=== PATIENT | female | born 1990 | race Two or more races ===

== ENCOUNTER 2024-03-02 18:31 | Emergency (ER) | payer OTHER ==
[2024-03-02 18:42] VITALS: TEMP 97.7
--- NOTE | 2024-03-02 19:21 | ED ---
Female Urogenital HPI - General Chief complaint: Vaginal Bleeding Stated complaint: Preg, Vag bleeding Time Seen by Provider: 03/02/24 18:51 Source: patient, RN notes reviewed Mode of arrival: ambulatory Limitations: no limitations - History of Present Illness Initial comments: 33-year-old female presenting to the ER with chief complaint of vaginal bleeding x 1 week at approximately 4 weeks gestation. Patient states she has been going through about 1 pad per day. Denies any abdominal pain, urinary symptoms, lightheadedness, syncope. Patient took 3 tests at home today and all were positive. Last menstrual period was January 14. Patient moved to [place] in July and does not have an OB to follow-up with yet. Patient does not speak Frisian, there is a project buyer at bedside. - Related Data Allergies Allergy/AdvReac Type Severity Reaction Status Date / Time No Known Allergies Allergy Verified 03/02/24 20:19 Review of Systems ROS Statement: Those systems with pertinent positive or pertinent negative responses have been documented in the HPI. ROS Other: All systems not noted in ROS Statement are negative. Past Medical History Past Medical History: No Reported History History of Any Multi-Drug Resistant Organisms: None Reported Past Surgical History: No Surgical Hx Reported Past Psychological History: No Psychological Hx Reported Smoking Status: Former smoker Past Alcohol Use History: Occasional Past Drug Use History: None Reported General Exam Limitations: no limitations General appearance: alert, in no apparent distress Head exam: Present: atraumatic, normocephalic, normal inspection Respiratory exam: Present: normal lung sounds bilaterally. Absent: respiratory distress, wheezes, rales, rhonchi, stridor Cardiovascular Exam: Present: regular rate, normal rhythm, normal heart sounds. Absent: systolic murmur, diastolic murmur, rubs, gallop, clicks GI/Abdominal exam: Present: soft, normal bowel sounds. Absent: distended, tenderness, guarding, rebound, rigid Back exam: Absent: CVA tenderness (R), CVA tenderness (L) Neurological exam: Present: alert, oriented X3 Psychiatric exam: Present: normal affect, normal mood Skin exam: Present: warm, dry, intact, normal color. Absent: rash Course Vital Signs 03/02/24 03/02/24 18:35 23:07 Temperature 97.7 F Pulse Rate 101 H 70 Respiratory 20 16 Rate Blood Pressure 142/89 122/79 O2 Sat by Pulse 99 98 Oximetry Medical Decision Making - Medical Decision Making Was pt. sent in by a medical professional or institution (GUCCI Peña, CAREER DEVELOPER, urgent care, hospital, or penitentiary...) When possible be specific @ -No Did you speak to anyone other than the patient for history (EMS, parent, family, police, friend...)? What history was obtained from this source @ -project buyer virtually present during history Did you review nursing and triage notes (agree or disagree)? Why? @ -I reviewed and agree with nursing and triage notes Were old charts reviewed (outside hosp., previous admission, EMS record, old EKG, old radiological studies, urgent care reports/EKG's, penitentiary records)? Report findings @ -No old charts were reviewed Differential Diagnosis (chest pain, altered mental status, abdominal pain women, abdominal pain men, vaginal bleeding, weakness, fever, dyspnea, syncope, headache, dizziness, GI bleed, back pain, seizure, CVA, palpatations, mental health, musculoskeletal)? @ -Differential Vaginal Bleeding: Spontaneous , threatened , molar , ectopic , bloody show, incompetent cervix, abruptioplacenta, placenta previa, uterine rupture, dysfunctional uterine bleeding, hemorrhage, uterine fibroids, this is not meant to be an all-inclusive list. EKG interpreted by me (3pts min.). @ -None X-rays interpreted by me (1pt min.). @ -None done CT interpreted by me (1pt min.). @ -None done U/S interpreted by me (1pt. min.). @ -Ultrasound pelvis reveals no evidence of intrauterine gestational sac, nonspecific echogenic focus seen within left adnexa What testing was considered but not performed or refused? (CT, X-rays, U/S, labs)? Why? @ -None What meds were considered but not given or refused? Why? @ -None Did you discuss the management of the patient with other professionals (professionals i.e. GUCCI Peña, CAREER DEVELOPER, lab, RT, psych nurse, public health social worker, table cover folder, teacher, field crop technical officer, case management assistant)? Give summary @ -I spoke with radiologist Dr. Samuels regarding ultrasound results, discussed concern for echogenic focus seen in left adnexa. I spoke with Dr. Bahena who is on-call OB to discuss case who recommends discharge with close outpatient follow-up as patient is not having any abdominal pain or tenderness. Was smoking cessation discussed for >3mins.? @ -No Was critical care preformed (if so, how long)? @ -No Were there social determinants of health that impacted care today? How? (Homelessness, low income, unemployed, alcoholism, drug addiction, transportation, low edu. Level, literacy, decrease access to med. care, fpc, rehab)? @ -No Was there de-escalation of care discussed even if they declined (Discuss DNR or withdrawal of care, Hospice)? DNR status @ -No What co-morbidities impacted this encounter? (DM, HTN, Smoking, COPD, CAD, Cancer, CVA, ARF, Chemo, Hep., AIDS, mental health diagnosis, sleep apnea, morbid obesity)? @ -None Was patient admitted / discharged? Hospital course, mention meds given and route, prescriptions, significant lab abnormalities, going to OR and other pertinent info. @ -Patient was discharged. This is a 33-year-old G2, P1 female at approximately 4 weeks gestation presenting for vaginal bleeding x 1 week. Denies abdominal pain or cramping. Vital signs within normal limits. Abdomen is soft and nontender to palpation. Lab work including CBC, CMP, lactic acid unremarkable. Beta-hCG level is 763. Urine is remarkable for large amount of blood. Ultraso und reveals no evidence of intrauterine gestational sac, there is a nonspecific echogenic focus seen within left adnexa. I spoke with radiologist Dr. Olivares regarding ultrasound results as there is concern for echogenic focus in the left adnexa. I then spoke with on-call OB Dr. Bahena who recommends discharge with close outpatient follow-up as patient is not having abdominal pain and is nontender to palpation. Results discussed with patient. Advised importance of follow-up beta-hCG levels in 2 days and instructed to call [facility] OB to schedule repeat ultrasound. Patient is agreeable to plan. Return precautions discussed in detail and patient conveys understanding and agrees to plan. Case was discussed with my ED attending Dr. Aden. Patient discharged in stable condition. Undiagnosed new problem with uncertain prognosis? @ -No Drug Therapy requiring intensive monitoring for toxicity (Heparin, Nitro, Insulin, Cardizem)? @ -No Were any procedures done? @ -No Diagnosis/symptom? @ -Threatened miscarriage Acute, or Chronic, or Acute on Chronic? @ -Acute Uncomplicated (without systemic symptoms) or Complicated (systemic symptoms)? @ -Uncomplicated Side effects of treatment? @ -No Exacerbation, Progression, or Severe Exacerbation? @ -No Poses a threat to life or bodily function? How? (Chest pain, USA, [place], pneumonia, PE, COPD, DKA, ARF, appy, cholecystitis, CVA, Diverticulitis, Homicidal, Suicidal, threat to staff... and all critical care pts) @ -Unlikely at this time - Lab Data Result diagrams: 03/02/24 19:35 03/02/24 19:35 Lab Results 03/02/24 03/02/24 03/02/24 Range/Units 19:35 19:35 19:35 WBC 5.0 (3.8-10.6) k/uL RBC 4.73 (3.80-5.40) m/uL Hgb 14.6 (11.4-16.0) gm/dL Hct 45.0 (34.0-46.0) % MCV 95.2 (80.0-100.0) fL MCH 30.8 (25.0-35.0) pg MCHC 32.4 (31.0-37.0) g/dL RDW 12.1 (11.5-15.5) % Plt Count 282 (150-450) k/uL MPV 7.5 Neutrophils % 62 % Lymphocytes % 26 % Monocytes % 5 % Eosinophils % 3 % Basophils % 1 % Neutrophils # 3.1 (1.3-7.7) k/uL Lymphocytes # 1.3 (1.0-4.8) k/uL Monocytes # 0.3 (0-1.0) k/uL Eosinophils # 0.1 (0-0.7) k/uL Basophils # 0.1 (0-0.2) k/uL Sodium 136 L (137-145) mmol/L Potassium 4.2 (3.5-5.1) mmol/L Chloride 102 (98-107) mmol/L Carbon Dioxide 27 (22-30) mmol/L Anion Gap 7 mmol/L BUN 4 L (7-17) mg/dL Creatinine 0.62 (0.52-1.04) mg/dL Est GFR (CKD-EPI)AfAm >90 (>60 ml/min/1.73 sqM) Est GFR (CKD-EPI)NonAf >90 (>60 ml/min/1.73 sqM) Glucose 93 (74-99) mg/dL Plasma Lactic Acid Curtis (0.7-2.0) mmol/L Calcium 9.8 (8.4-10.2) mg/dL Total Bilirubin 0.6 (0.2-1.3) mg/dL AST 36 (14-36) U/L ALT 31 (4-34) U/L Alkaline Phosphatase 64 (38-126) U/L Total Protein 7.8 (6.3-8.2) g/dL Albumin 4.8 (3.5-5.0) g/dL HCG, Quant 763.4 mIU/mL Urine Color Urine Appearance (Clear) Urine pH (5.0-8.0) Ur Specific [place] (1.001-1.035) Urine Protein (Negative) Urine Glucose (UA) (Negative) Urine Ketones (Negative) Urine Blood (Negative) Urine Nitrite (Negative) Urine Bilirubin (Negative) Urine Urobilinogen (<2.0) mg/dL Ur Leukocyte Esterase (Negative) Urine RBC (0-5) /hpf Urine WBC (0-5) /hpf Ur Squamous Epith Cells (0-4) /hpf Urine Bacteria (None) /hpf Urine Mucus (None) /hpf Blood Type B Positive Blood Type Confirm Blood Type Recheck No Previous Record Bld Type Recheck Status CABO Indicated 03/02/24 03/02/24 03/02/24 Range/Units 19:35 19:56 20:04 WBC (3.8-10.6) k/uL RBC (3.80-5.40) m/uL Hgb (11.4-16.0) gm/dL Hct (34.0-46.0) % MCV (80.0-100.0) fL MCH (25.0-35.0) pg MCHC (31.0-37.0) g/dL RDW (11.5-15.5) % Plt Count (150-450) k/uL MPV Neutrophils % % Lymphocytes % % Monocytes % % Eosinophils % % Basophils % % Neutrophils # (1.3-7.7) k/uL Lymphocytes # (1.0-4.8) k/uL Monocytes # (0-1.0) k/uL Eosinophils # (0-0.7) k/uL Basophils # (0-0.2) k/uL Sodium (137-145) mmol/L Potassium (3.5-5.1) mmol/L Chloride (98-107) mmol/L Carbon Dioxide (22-30) mmol/L Anion Gap mmol/L BUN (7-17) mg/dL Creatinine (0.52-1.04) mg/dL Est GFR (CKD-EPI)AfAm (>60 ml/min/1.73 sqM) Est GFR (CKD-EPI)NonAf (>60 ml/min/1.73 sqM) Glucose (74-99) mg/dL Plasma Lactic Acid Curtis 0.9 (0.7-2.0) mmol/L Calcium (8.4-10.2) mg/dL Total Bilirubin (0.2-1.3) mg/dL AST (14-36) U/L ALT (4-34) U/L Alkaline Phosphatase (38-126) U/L Total Protein (6.3-8.2) g/dL Albumin (3.5-5.0) g/dL HCG, Quant mIU/mL Urine Color Yellow Urine Appearance Clear (Clear) Urine pH 5.5 (5.0-8.0) Ur Specific [place] 1.026 (1.001-1.035) Urine Protein Trace H (Negative) Urine Glucose (UA) Negative (Negative) Urine Ketones 1+ H (Negative) Urine Blood Large H (Negative) Urine Nitrite Negative (Negative) Urine Bilirubin Negative (Negative) Urine Urobilinogen <2.0 (<2.0) mg/dL Ur Leukocyte Esterase Negative (Negative) Urine RBC 173 H (0-5) /hpf Urine WBC 2 (0-5) /hpf Ur Squamous Epith Cells 4 (0-4) /hpf Urine Bacteria Rare H (None) /hpf Urine Mucus Few H (None) /hpf Blood Type Blood Type Confirm B Positive Blood Type Recheck Bld Type Recheck Status Disposition Clinical Impression: Threatened miscarriage Disposition: HOME SELF-CARE Condition: Stable Instructions (If sedation given, give patient instructions): Threatened Miscarriage (ED) Additional Instructions: Please follow-up in 48 hours as discussed for repeat beta-hCG. Please call [facility] TANK CAR REPAIRER and make an appointment for repeat ultrasound. Please return to the Emergency Department if symptoms worsen or any other concerns. Is patient prescribed a controlled substance at d/c from ED?: No Referrals: None,Stated [Primary Care Provider] - 1-2 days Marisol Bahena MD [STAFF PHYSICIAN] - 1-2 days Time of Disposition: 23:18
[2024-03-02 19:48] LABS: Basophils # (A) 0.1 k/uL (0-0.2); Basophils % (A) 1 %; Eosinophils # (A) 0.1 k/uL (0-0.7); Eosinophils % (A) 3 %; HGB 14.6 gm/dL (11.4-16.0); Lymphocytes # (A) 1.3 k/uL (1.0-4.8); Lymphocytes % (A) 26 %; MCH 30.8 pg (25.0-35.0); MCHC 32.4 g/dL (31.0-37.0); MCV 95.2 fL (80.0-100.0); Mean Platelet Volume 7.5; Monocytes # (A) 0.3 k/uL (0-1.0); Monocytes % (A) 5 %; Neutrophils # (A) 3.1 k/uL (1.3-7.7); Neutrophils % (A) 62 %; Platelet Count 282 k/uL (150-450); RBC 4.73 m/uL (3.80-5.40); RDW 12.1 % (11.5-15.5)
[2024-03-02 20:04] LABS: ALT 31 U/L (4-34); AST 36 U/L (14-36); African American GFR (CKD) >90 (>60 ml/min/1.73 sqM); Albumin 4.8 g/dL (3.5-5.0); Alkaline Phosphatase 64 U/L (38-126); Anion Gap 7 mmol/L; Blood Urea Nitrogen 4 mg/dL (7-17); Calcium 9.8 mg/dL (8.4-10.2); Carbon Dioxide 27 mmol/L (22-30); Chloride 102 mmol/L (98-107); Glucose 93 mg/dL (74-99); Non-African American GFR(CKD) >90 (>60 ml/min/1.73 sqM); Potassium 4.2 mmol/L (3.5-5.1); Sodium 136 mmol/L (137-145); Total Bilirubin 0.6 mg/dL (0.2-1.3); Total Protein 7.8 g/dL (6.3-8.2)
[2024-03-02 20:20] LABS: HCG,Quantitative Serum 763.4 mIU/mL
[2024-03-02 20:38] LABS: Appearance,Urine Clear (Clear); Bacteria,Urine Rare /hpf; Bilirubin,Urine Negative (Negative); Blood,Urine Large (Negative); Color,Urine Yellow; Glucose,Urine (UA) Negative (Negative); Ketones,Urine 1+ (Negative); Leukocyte Esterase,Urine Negative (Negative); Mucus,Urine Few /hpf; Nitrite,Urine Negative (Negative); PH, Urine 5.5 (5.0-8.0); Protein,Urine Trace (Negative); RBC,Urine 173 /hpf (0-5); Specific Gravity,Urine 1.026 (1.001-1.035); Squamous Epithelial Cell,Urine 4 /hpf (0-4); Urobilinogen,Urine <2.0 mg/dL (<2.0); WBC,Urine 2 /hpf (0-5)
--- NOTE | 2024-03-02 22:31 | US ---
EXAMINATION TYPE: Transabdominal DATE OF EXAM: 03/02/2024 8:56 PM COMPARISON: NONE CLINICAL INDICATION: Female, 33 years old with history of vaginal bleeding in ; Patient stat es she took multiple positive tests EXAM PERFORMED: Transvaginal (TV) and Transabdominal (TA) EXAM MEASUREMENTS: GESTATIONAL AGE / DATING Physician Established: Not yet established Dates by LMP: (6 weeks/5 days) EDC: 10/21/2024 Dates by First Scan: No previous this is first scan Dates by Current Scan for: Unable to date by today's study MATERNAL ANATOMY Exam is limited due to overlying bowel gas. Uterus: 7.3 x 4.4 x 5.0cm Right Ovary: Obscured by bowel Left Ovary: 3.5 x 1.7 x 2.3cm Post CDS / Adnexa: There is a 2.1 x 1.1 x 1.3cm possible echogenic area seen anterior to the left ova ry without peristalsis. Presence of free fluid: Not seen Presence of corpus luteal cyst: not seen Presence of subchorionic bleed: not seen GESTATION / SURVEY CRL: NA MSD: NA Yolk Sac (normal less than 6mm): NA Heart Rate: NA bpm Rhythm: NA IUP: No IUP seen at this time Date of LMP: 01/15/2024 Beta HcG (if available): 763.4 IMPRESSION: 1. No evidence of intrauterine gestational sac in this patient with a positive B-hCG. This can be see n in early , ectopic and spontaneous . Follow up pelvic ultrasound in 5-7 days and serial beta hCG studies are recommended. 2. There is a nonspecific echogenic focus seen within the left adnexa which does not demonstrate disc rete color Doppler flow. Cannot rule out ectopic on this limited exam. Attention to this st ructure on follow-up ultrasound. Recommend obstetric consultation. Findings of the case were discussed with managing provider GUCCI Baltazar over the phone at 10:24 PM on 03/02/[address] Samuels. [facility], , 03/02/2024 10:29 PM
[2024-03-02 23:09] VITALS: BP 122/79; PULSE 70; RESP 16
== END 2024-03-02 23:26 | disposition home or self-care (01) ==
LOC: EC 18:31
CPT/HCPCS: 36415; 76801; 76817; 80053; 81001; 83605; 84702; 85025; 86900; 86901; 99284

== ENCOUNTER 2024-03-08 09:29 | Emergency (ER) | payer OTHER ==
[2024-03-08 09:35] VITALS: RESP 18
--- NOTE | 2024-03-08 10:40 | ED ---
Recheck HPI - General Chief Complaint: Recheck/Abnormal Lab/Rx Stated Complaint: abn labs Time Seen by Provider: 03/08/24 10:39 Source: patient, RN notes reviewed, old records reviewed Mode of arrival: ambulatory Limitations: language barrier (Patient is from [facility] and speaks broken engligh using google translate to communicate) - History of Present Illness Initial Comments: 33-year-old female presented to the ER for evaluation of vaginal bleeding. Patient was seen here on 03-02-2024 for evaluation of vaginal bleeding. Ultrasound at that time showed no IUP and an abnormality to left adnexa. Patient presents today for reevaluation. Patient reports pain has since subsided. She denies any current vaginal bleeding or discharge. She denies any nausea, vomiting, fevers or chills. Denies any urinary complaints. - Related Data Previous Rx's Medication Instructions Recorded Osf-Oszy-Dpzxd Acid 1 each PO DAILY 30 Days #30 cap 03/08/24 [-U Capsule] Allergies Allergy/AdvReac Type Severity Reaction Status Date / Time No Known Allergies Allergy Verified 03/08/24 12:08 Review of Systems ROS Statement: Those systems with pertinent positive or pertinent negative responses have been documented in the HPI. ROS Other: All systems not noted in ROS Statement are negative. Past Medical History Past Medical History: No Reported History History of Any Multi-Drug Resistant Organisms: None Reported Past Surgical History: No Surgical Hx Reported Past Psychological History: No Psychological Hx Reported Smoking Status: Former smoker Past Alcohol Use History: Occasional Past Drug Use History: None Reported General Exam Limitations: no limitations Course Vital Signs 03/08/24 03/08/24 09:34 13:12 Temperature 97.8 F 97.6 F Pulse Rate 88 82 Respiratory 18 18 Rate Blood Pressure 123/86 120/84 O2 Sat by Pulse 99 99 Oximetry - Reevaluation(s) Reevaluation #1: 03/08/24 12:27 Case discussed with on-call ENGLISH LANGUAGE LEARNER TUTOR, Dr. Mack. He advised on close outpatient ENGLISH LANGUAGE LEARNER TUTOR follow-up outpatient. Patient does not require any intervention at this time. Medical Decision Making - Medical Decision Making Was pt. sent in by a medical professional or institution (, PA, WOOL FLEECE SORTER, urgent care, hospital, or care home...) When possible be specific @ -No Did you speak to anyone other than the patient for history (EMS, parent, family, police, friend...)? What history was obtained from this source @ -No Did you review nursing and triage notes (agree or disagree)? Why? @ -I reviewed and agree with nursing and triage notes Were old charts reviewed (outside hosp., previous admission, EMS record, old EKG, old radiological studies, urgent care reports/EKG's, care home records)? Report findings @ -Yes, I reviewed ER visit from 03-02-2024 patient seen for vaginal bleeding. No IUP at that time on ultrasound. Serum hCG 763. Patient discharged with close follow-up with ENGLISH LANGUAGE LEARNER TUTOR. blood type B+ Differential Diagnosis (chest pain, altered mental status, abdominal pain women, abdominal pain men, vaginal bleeding, weakness, fever, dyspnea, syncope, headache, dizziness, GI bleed, back pain, seizure, CVA, palpatations, mental health, musculoskeletal)? @ -Differential Abdominal Pain Women: Appendicitis, Cholecystitis, diverticulosis, ischemic bowel, pancreatitis, hepatitis, UTI, gastroenteritis, AAA, incarcerated hernia, bowel obstruction, constipation, inflammatory bowel, hepatitis, peptic ulcer disease, splenic infarction, perforated viscus, vulvitis, ovarian torsion, PID, kidney stone, placenta abruption, this is not meant to be an all-inclusive list EKG interpreted by me (3pts min.). @ -None done X-rays interpreted by me (1pt min.). @ -None done CT interpreted by me (1pt min.). @ -None done U/S interpreted by me (1pt. min.). @ - ultrasound showing no evidence of IUP. There is multiple areas adjacent to left adnexa consistent with follicles. 1 hypoechoic area of the left ovary measuring 1.9 x 1.6 x 1.1 cm. Most consistent with a related corpus luteum. 2 echogenic areas adjacent to the left adnexa. What testing was considered but not performed or refused? (CT, X-rays, U/S, labs)? Why? @ -None What meds were considered but not given or refused? Why? @ -None Did you discuss the management of the patient with other professionals (professionals i.e. , PA, WOOL FLEECE SORTER, lab, RT, psych nurse, social service liaison, field administrative assistant, teacher, chief contract officer, rn case manager)? Give summary @ -Yes, case discussed with on-call ENGLISH LANGUAGE LEARNER TUTOR, Dr. Mack who advised on serial hCGs, ultrasounds and outpatient follow-up. Was smoking cessation discussed for >3mins.? @ -No Was critical care preformed (if so, how long)? @ -No Were there social determinants of health that impacted care today? How? (Homelessness, low income, unemployed, alcoholism, drug addiction, transportation, low edu. Level, literacy, decrease access to med. care, fpc, rehab)? @ -Yes, patient moved to [place] from [facility] in July of this year. She has decreased access to medical care. Was there de-escalation of care discussed even if they declined (Discuss DNR or withdrawal of care, Hospice)? DNR status @ -No What co-morbidities impacted this encounter? (DM, HTN, Smoking, COPD, CAD, Cancer, CVA, ARF, Chemo, Hep., AIDS, mental health diagnosis, sleep apnea, morbid obesity)? @ - Was patient admitted / discharged? Hospital course, mention meds given and route, prescriptions, significant lab abnormalities, going to OR and other pertinent info. @ -Discharge. 33-year-old female presenting to the ER for follow-up evaluation of abdominal pain in . Patient speaks broken [place] and [email or web address] translate and Ary GRACE translated. Patient seen here on 03-02-2024 for similar complaint. No IUP seen at that time. Serum hCG 763. Upon my evaluation today, patient no signs of acute distress and nontoxic-appearing. No focal abdominal tenderness. Vitals stable. Laboratory studies repeated showing a serum hCG today of 1590. No IUP identified today. Multiple areas adjacent to left adnexa consistent with follicles. Urinalysis unremarkable. Patient's blood type is B+ no indication for RhoGAM. Case discussed with on-call ENGLISH LANGUAGE LEARNER TUTOR, Dr. Mack, who advised on serial hCGs, ultrasounds and outpatient follow-up. Upon reevaluation, patient resting comfortably exam room no signs of acute distress. Results discussed with patient, all questions answered. Advise close follow-up with ENGLISH LANGUAGE LEARNER TUTOR, referral given. Ultrasound and serial hCG prescription given I instructed patient to have these completed in 48 to 72 hours. Strict return parameters discussed. Patient discharged in stable condition. Patient verbally expressed understanding and agreement with care plan. Case discussed with ED attending, Dr. Davies. Undiagnosed new problem with uncertain prognosis? @ -No Drug Therapy requiring intensive monitoring for toxicity (Heparin, Nitro, Insulin, Cardizem)? @ -No Were any procedures done? @ -No Diagnosis/symptom? @ -/abdominal pain Acute, or Chronic, or Acute on Chronic? @ -Acute Uncomplicated (without systemic symptoms) or Complicated (systemic symptoms)? @ -Uncomplicated Side effects of treatment? @ -No Exacerbation, Progression, or Severe Exacerbation? @ -No Poses a threat to life or bodily function? How? (Chest pain, [place], [place], pneumonia, PE, COPD, DKA, ARF, appy, cholecystitis, CVA, Diverticulitis, Homicidal, Suicidal, threat to staff... and all critical care pts) @ -No - Lab Data Result diagrams: 03/08/24 11:19 03/08/24 11:19 Lab Results 03/08/24 03/08/24 03/08/24 Range/Units 11:19 11:19 11:19 WBC 4.1 (3.8-10.6) k/uL RBC 4.29 (3.80-5.40) m/uL Hgb 13.3 (11.4-16.0) gm/dL Hct 41.2 (34.0-46.0) % MCV 95.9 (80.0-100.0) fL MCH 30.9 (25.0-35.0) pg MCHC 32.3 (31.0-37.0) g/dL RDW 12.1 (11.5-15.5) % Plt Count 321 (150-450) k/uL MPV 7.9 Neutrophils % 52 % Lymphocytes % 33 % Monocytes % 8 % Eosinophils % 3 % Basophils % 1 % Neutrophils # 2.2 (1.3-7.7) k/uL Lymphocytes # 1.3 (1.0-4.8) k/uL Monocytes # 0.3 (0-1.0) k/uL Eosinophils # 0.1 (0-0.7) k/uL Basophils # 0.0 (0-0.2) k/uL Sodium 139 (137-145) mmol/L Potassium 4.7 (3.5-5.1) mmol/L Chloride 106 (98-107) mmol/L Carbon Dioxide 28 (22-30) mmol/L Anion Gap 5 mmol/L BUN 4 L (7-17) mg/dL Creatinine 0.59 (0.52-1.04) mg/dL Est GFR (CKD-EPI)AfAm >90 (>60 ml/min/1.73 sqM) Est GFR (CKD-EPI)NonAf >90 (>60 ml/min/1.73 sqM) Glucose 102 H (74-99) mg/dL Calcium 9.8 (8.4-10.2) mg/dL Total Bilirubin 0.5 (0.2-1.3) mg/dL AST 29 (14-36) U/L ALT 30 (4-34) U/L Alkaline Phosphatase 45 (38-126) U/L Total Protein 7.2 (6.3-8.2) g/dL Albumin 4.5 (3.5-5.0) g/dL HCG, Quant 1590.3 mIU/mL Urine Color Colorless Urine Appearance Clear (Clear) Urine pH 6.5 (5.0-8.0) Ur Specific [place] 1.001 (1.001-1.035) Urine Protein Negative (Negative) Urine Glucose (UA) Negative (Negative) Urine Ketones Negative (Negative) Urine Blood Negative (Negative) Urine Nitrite Negative (Negative) Urine Bilirubin Negative (Negative) Urine Urobilinogen <2.0 (<2.0) mg/dL Ur Leukocyte Esterase Negative (Negative) - Radiology Data Radiology results: report reviewed, image reviewed Disposition Clinical Impression: , Abdominal pain Disposition: HOME SELF-CARE Condition: Stable Instructions (If sedation given, give patient instructions): (ED) Additional Instructions: Please follow-up with ENGLISH LANGUAGE LEARNER TUTOR. Have serial hCGs and ultrasounds to trend . Return to the ER for any new or worsening concerns. Prescriptions: Lom-Ajno-Cfwzl Acid [-U Capsule] 1 each PO DAILY 30 Days #30 cap Is patient prescribed a controlled substance at d/c from ED?: No Referrals: Pedro Mancilla MD [STAFF PHYSICIAN] - 1-2 days (Contact/go to office to make follow up appointment. ) None,Stated [REFERRING] - 1-2 days [facility] - 1-2 days ([facility] for those with no insurance or underinsured. Contact to become established as a patient. ) Time of Disposition: 13:00
[2024-03-08 11:34] LABS: Basophils % (A) 1 %; Eosinophils # (A) 0.1 k/uL (0-0.7); Eosinophils % (A) 3 %; HCT 41.2 % (34.0-46.0); HGB 13.3 gm/dL (11.4-16.0); Lymphocytes # (A) 1.3 k/uL (1.0-4.8); Lymphocytes % (A) 33 %; MCH 30.9 pg (25.0-35.0); MCHC 32.3 g/dL (31.0-37.0); MCV 95.9 fL (80.0-100.0); Mean Platelet Volume 7.9; Monocytes # (A) 0.3 k/uL (0-1.0); Monocytes % (A) 8 %; Neutrophils # (A) 2.2 k/uL (1.3-7.7); Neutrophils % (A) 52 %; Platelet Count 321 k/uL (150-450); RBC 4.29 m/uL (3.80-5.40); RDW 12.1 % (11.5-15.5); WBC 4.1 k/uL (3.8-10.6)
--- NOTE | 2024-03-08 11:37 | US ---
EXAMINATION TYPE: Transabdominal DATE OF EXAM: 03/08/2024 11:18 AM COMPARISON: 03/02/24 CLINICAL INDICATION: Female, 33 years old with history of abd pain; Pt's prior US had recommended a f ollow up US and hCG. No bleeding or cramping at this time. 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 EXAM PERFORMED: Transvaginal (TV) and Transabdominal (TA) EXAM MEASUREMENTS: GESTATIONAL AGE / DATING Physician Established: Not yet established Dates by LMP: (7 weeks/4 days) EDC: 10/22/23 Dates by First Scan: No IUP seen Dates by Current Scan for: No IUP seen at this time MATERNAL ANATOMY Uterus: 7.6 x 5.4 x 4.0cm Right Ovary: 2.4 x 1.9 x 1.4cm Left Ovary: 3.2 x 2.8 x 1.8cm Post CDS / Adnexa: multiple echogenic areas seen adjacent to left ovary. Presence of free fluid: No Presence of corpus luteal cyst: ? in left ovary Presence of subchorionic bleed: No GESTATION / SURVEY CRL: not seen MSD: not seen Yolk Sac (normal less than 6mm): Not seen IUP: No IUP seen at this time Date of LMP: Around 01/15/24 Beta HcG (if available): Not drawn today. On 03/02/24 it was 763.4 No IUP seen today. Endometrium is measuring 0.4cm. Multiple areas seen in and adjacent to left ovary consistent with follicles. 1 hypoechoic area in the left ovary measuring 1.9 x 1.6 x 1.1cm. Most cons istent with a crenulated corpus luteum. 2 echogenic areas seen adjacent to left ovary of doubtful cli nical significance. IMPRESSION: No evidence of intrauterine gestational sac again from prior ultrasound 03/02/2024. Correlate with bet a-hCG. If positive, this could represent early , ectopic or spontaneous . More worrisome for spontaneous due to lack of gestational sac again. Follow up pelvic ultras ound in 5-7 days and serial beta hCG studies are recommended. [facility], , 03/08/2024 11:35 AM
[2024-03-08 11:55] LABS: ALT 30 U/L (4-34); AST 29 U/L (14-36); African American GFR (CKD) >90 (>60 ml/min/1.73 sqM); Albumin 4.5 g/dL (3.5-5.0); Alkaline Phosphatase 45 U/L (38-126); Anion Gap 5 mmol/L; Blood Urea Nitrogen 4 mg/dL (7-17); Calcium 9.8 mg/dL (8.4-10.2); Carbon Dioxide 28 mmol/L (22-30); Chloride 106 mmol/L (98-107); Glucose 102 mg/dL (74-99); Non-African American GFR(CKD) >90 (>60 ml/min/1.73 sqM); Potassium 4.7 mmol/L (3.5-5.1); Sodium 139 mmol/L (137-145); Total Bilirubin 0.5 mg/dL (0.2-1.3); Total Protein 7.2 g/dL (6.3-8.2)
[2024-03-08 12:04] LABS: Appearance,Urine Clear (Clear); Bilirubin,Urine Negative (Negative); Blood,Urine Negative (Negative); Color,Urine Colorless; Glucose,Urine (UA) Negative (Negative); Ketones,Urine Negative (Negative); Leukocyte Esterase,Urine Negative (Negative); Nitrite,Urine Negative (Negative); PH, Urine 6.5 (5.0-8.0); Protein,Urine Negative (Negative); Specific Gravity,Urine 1.001 (1.001-1.035); Urobilinogen,Urine <2.0 mg/dL (<2.0)
[2024-03-08 12:07] LABS: HCG,Quantitative Serum 1590.3 mIU/mL
[2024-03-08 13:13] VITALS: BP 120/84; PULSE 82; TEMP 97.6
== END 2024-03-08 13:13 | disposition home or self-care (01) ==
LOC: EC 09:29
CPT/HCPCS: 36415; 76801; 76817; 80053; 81003; 84702; 85025

== ENCOUNTER 2024-03-11 09:02 | Emergency (ER) | payer OTHER ==
--- NOTE | 2024-03-11 09:55 | ED ---
Recheck HPI - General Chief Complaint: Recheck/Abnormal Lab/Rx Stated Complaint: Recheck Time Seen by Provider: 03/11/24 09:55 Source: patient, paid intern, RN notes reviewed, old records reviewed Mode of arrival: ambulatory Limitations: language barrier - History of Present Illness Initial Comments: 33-year-old female presented to the ER for abnormal ultrasound follow-up. Last menstrual cycle 01/15/24. Patient recently moved here from [facility] in July. Patient was seen here on 03-02-24 for abdominal pain and vaginal bleeding. hCG at that time is 763. Ultrasound not showing an IUP but there is a nonspecific echogenic focus near the left adnexa cannot rule out ectopic . Patient seen here on 03-08-2024 for follow-up. hCG at that time 1590 ultrasound showing no IUP with multiple nonspecific areas adjacent to the left adnexa. Patient reports today no change in her symptoms. No abdominal pain no vaginal bleeding or discharge. No other acute complaints. She is here for repeat ultrasound and hCG levels. - Related Data Previous Rx's Medication Instructions Recorded Def-Osxn-Donzj Acid 1 each PO DAILY 30 Days #30 cap 03/08/24 [-U Capsule] Allergies Allergy/AdvReac Type Severity Reaction Status Date / Time No Known Allergies Allergy Verified 03/11/24 09:23 Review of Systems ROS Statement: Those systems with pertinent positive or pertinent negative responses have been documented in the HPI. ROS Other: All systems not noted in ROS Statement are negative. Past Medical History Past Medical History: No Reported History History of Any Multi-Drug Resistant Organisms: None Reported Past Surgical History: No Surgical Hx Reported Past Psychological History: No Psychological Hx Reported Smoking Status: Former smoker Past Alcohol Use History: Occasional Past Drug Use History: None Reported General Exam Limitations: language barrier (Google translate) General appearance: alert, in no apparent distress Respiratory exam: Present: normal lung sounds bilaterally. Absent: respiratory distress, wheezes, rales, rhonchi, stridor Cardiovascular Exam: Present: regular rate, normal rhythm, normal heart sounds. Absent: systolic murmur, diastolic murmur, rubs, gallop, clicks GI/Abdominal exam: Present: soft, normal bowel sounds. Absent: distended, tenderness, guarding, rebound, rigid Neurological exam: Present: alert, oriented X3, CN II-XII intact Skin exam: Present: warm, dry, intact, normal color. Absent: rash Course Vital Signs 03/11/24 03/11/24 09:20 11:46 Temperature 97.8 F 98.1 F Pulse Rate 74 90 Respiratory 16 18 Rate Blood Pressure 113/77 118/70 O2 Sat by Pulse 98 Oximetry Medical Decision Making - Medical Decision Making Was pt. sent in by a medical professional or institution (, PA, ASSISTANT ACCOUNT MANAGER, urgent care, hospital, or detention...) When possible be specific @ -No Did you speak to anyone other than the patient for history (EMS, parent, family, police, friend...)? What history was obtained from this source @ -No Did you review nursing and triage notes (agree or disagree)? Why? @ -I reviewed and agree with nursing and triage notes Were old charts reviewed (outside hosp., previous admission, EMS record, old EKG, old radiological studies, urgent care reports/EKG's, detention records)? Report findings @ -I reviewed ER charts from 03-02-2024. hCG at that time 763. Ultrasound showing no IUP with a nonspecific echogenic focus at the left adnexa. 03-08-2024. Serum hCG 1590. No IUP at that time. Multiple nonspecific areas adjacent to the left adnexa. Differential Diagnosis (chest pain, altered mental status, abdominal pain women, abdominal pain men, vaginal bleeding, weakness, fever, dyspnea, syncope, head ache, dizziness, GI bleed, back pain, seizure, CVA, palpatations, mental health, musculoskeletal)? @ -Differential Abdominal Pain Women:Appendicitis, Cholecystitis, diverticulosis, ischemic bowel, pancreatitis, hepatitis, UTI, gastroenteritis, AAA, incarcerated hernia, bowel obstruction, constipation, inflammatory bowel, hepatitis, peptic ulcer disease, splenic infarction, perforated viscus, vul vitis, ovarian torsion, PID, kidney stone, placenta abruption, this is not meant to be an all-inclusive list EKG interpreted by me (3pts min.). @ -None done X-rays interpreted by me (1pt min.). @ -None done CT interpreted by me (1pt min.). @ -None done U/S interpreted by me (1pt. min.). @ - ultrasound showing no IUP. There is a hypoechoic structure in the left adnexa. Increased vascularity to the region of the left adnexa. Ectopic not excluded. No free fluid in the cul-de-sac. What testing was considered but not performed or refused? (CT, X-rays, U/S, labs)? Why? @ -None What meds were considered but not given or refused? Why? @ -None Did you discuss the management of the patient with other professionals (professionals i.e. DrIrish, PA, ASSISTANT ACCOUNT MANAGER, lab, RT, psych nurse, social worker school, quality assurance manager, teacher, morale officer, telephonic case manager)? Give summary @ -No Was smoking cessation discussed for >3mins.? @ -No Was critical care preformed (if so, how long)? @ -No Were there social determinants of health that impacted care today? How? (Homelessness, low income, unemployed, alcoholism, drug addiction, transportation, low edu. Level, literacy, decrease access to med. care, group home, rehab)? @ -Yes, patient recently moved here from [facility] in July and has limited access to healthcare. Was there de-escalation of care discussed even if they declined (Discuss DNR or withdrawal of care, Hospice)? DNR status @ -No What co-morbidities impacted this encounter? (DM, HTN, Smoking, COPD, CAD, Cancer, CVA, ARF, Chemo, Hep., AIDS, mental health diagnosis, sleep apnea, morbid obesity)? @ -None Was patient admitted / discharged? Hospital course, mention meds given and route, prescriptions, significant lab abnormalities, going to OR and other pertinent info. @ -Discharge. 33-year-old female presented to ER for reevaluation of abdominal pain and vaginal bleeding in . Google translate used to communicate with patient as she speaks broken Iraqi. History and physical exam completed. Vitals within normal limits. No acute complaints. Exam benign. HCG today 2613.9. Ultrasound completed today showing no IUP. There is a hypoechoic structure in the left adnexa. Increased vascularity to the region of left adnexa. I recommended 48-hour repeat hCG and ultrasound, scripts given. Patient stable for discharge at this time. Strict return parameters discussed. Patient discharged in stable condition with follow-up to [employer], referral given. Patient verbally expressed understanding and agreement with care plan. Case discussed with ED attending, Dr. Carvalho. Undiagnosed new problem with uncertain prognosis? @ -No Drug Therapy requiring intensive monitoring for toxicity (Heparin, Nitro, Insulin, Cardizem)? @ -No Were any procedures done? @ -No Diagnosis/symptom? @ -Abdominal pain in Acute, or Chronic, or Acute on Chronic? @ -Acute Uncomplicated (without systemic symptoms) or Complicated (systemic symptoms)? @ -Uncomplicated Side effects of treatment? @ -No Exacerbation, Progression, or Severe Exacerbation? @ -No Poses a threat to life or bodily function? How? (Chest pain, [place], [place], pneumonia, PE, COPD, DKA, ARF, appy, cholecystitis, CVA, Diverticulitis, Homicidal, Suicidal, threat to staff... and all critical care pts) @ -No - Lab Data Lab Results 03/11/24 Range/Units 09:47 HCG, Quant 2613.9 mIU/mL - Radiology Data Radiology results: report reviewed, image reviewed Disposition Clinical Impression: Disposition: HOME SELF-CARE Condition: Stable Additional Instructions: Follow-up in 48 hours for repeat hCG and ultrasound. Return to the ER for any new or worsening concerns. Is patient prescribed a controlled substance at d/c from ED?: No Referrals: Nonstaff,Physician [Primary Care Provider] - 1-2 days Marisol Bahena MD [STAFF PHYSICIAN] - 1-2 days Time of Disposition: 11:29
--- NOTE | 2024-03-11 11:03 | US ---
EXAMINATION TYPE: Transabdominal DATE OF EXAM: 03/11/2024 10:41 AM COMPARISON: 03/08/24, 03/02/24 CLINICAL INDICATION: Female, 33 years old with history of ; Patient here for follow up US & H cg. Was here 3 days ago with hcg of 1590 and no IUP seen. Today hcg is 2613 EXAM PERFORMED: Transvaginal (TV) EXAM MEASUREMENTS: GESTATIONAL AGE / DATING Physician Established: Not yet established Dates by LMP: 01/15/24 8 weeks/0 days) EDC: 10/21/24 Dates by First Scan: NO IUP seen prior scans Dates by Current Scan for: No IUP seen at this time MATERNAL ANATOMY Uterus: 6.7 x 3.6 x 4.3 cm Right Ovary: 2.5 x 1.7 x 2.5 cm Left Ovary: 2.9 x 1.4 x 2.6 cm Post CDS / Adnexa: Excessive bowel gas noted on today's exam; left adnexal hypoechoic area adjacent t o left ovary measuring 1.7 x 1.2 x 1.2 cm; Left sided blood vessels appear noticeably larger than rig ht side Presence of free fluid: No Presence of corpus luteal cyst: No Presence of subchorionic bleed: No Date of LMP: 01/15/24 Beta HcG (if available): 2613 today -- was 1590 3 days ago on 03/08/24 IMPRESSION: 1. No intrauterine identified 2. Hypoechoic structure in the left adnexa with rising beta hCG. Increase in vascularity in the regio n of the left adnexa. 3 .Ectopic is not excluded. 4. No free fluid within the cul-de-sac. [facility], , 03/11/2024 11:00 AM
[2024-03-11 11:47] VITALS: BP 118/70; PULSE 90; RESP 18; TEMP 98.1
== END 2024-03-11 11:50 | disposition home or self-care (01) ==
LOC: EC 09:03
CPT/HCPCS: 36415; 76801; 76817; 84702; 99284

== ENCOUNTER 2024-03-13 18:32 | Emergency (ER) | payer OTHER ==
[2024-03-13 19:15] VITALS: RESP 16; TEMP 97.9
[2024-03-13] MEDS: SODIUM CHLORIDE 0.9% 500 ML 500 ML IV ONE (19:59)
[2024-03-13 20:06] LABS: Basophils % (A) 1 %; Eosinophils # (A) 0.2 k/uL (0-0.7); Eosinophils % (A) 2 %; HCT 41.6 % (34.0-46.0); HGB 13.7 gm/dL (11.4-16.0); Lymphocytes # (A) 1.8 k/uL (1.0-4.8); Lymphocytes % (A) 28 %; MCHC 32.9 g/dL (31.0-37.0); MCV 94.4 fL (80.0-100.0); Mean Platelet Volume 7.6; Monocytes # (A) 0.4 k/uL (0-1.0); Monocytes % (A) 5 %; Neutrophils # (A) 3.9 k/uL (1.3-7.7); Neutrophils % (A) 60 %; Platelet Count 340 k/uL (150-450); RBC 4.41 m/uL (3.80-5.40); RDW 11.9 % (11.5-15.5); WBC 6.5 k/uL (3.8-10.6)
[2024-03-13 20:07] LABS: Appearance,Urine Clear (Clear); Bilirubin,Urine Negative (Negative); Blood,Urine Negative (Negative); Color,Urine Colorless; Glucose,Urine (UA) Negative (Negative); Ketones,Urine Negative (Negative); Leukocyte Esterase,Urine Negative (Negative); Nitrite,Urine Negative (Negative); PH, Urine 6.5 (5.0-8.0); Protein,Urine Negative (Negative); Specific Gravity,Urine 1.002 (1.001-1.035); Urobilinogen,Urine <2.0 mg/dL (<2.0)
[2024-03-13 20:17] LABS: Glucose 98 mg/dL (74-99); Sodium 140 mmol/L (137-145)
[2024-03-13 20:18] LABS: ALT 33 U/L (4-34); AST 30 U/L (14-36); African American GFR (CKD) >90 (>60 ml/min/1.73 sqM); Albumin 4.8 g/dL (3.5-5.0); Alkaline Phosphatase 50 U/L (38-126); Anion Gap 7 mmol/L; Blood Urea Nitrogen 8 mg/dL (7-17); Calcium 10.2 mg/dL (8.4-10.2); Carbon Dioxide 27 mmol/L (22-30); Chloride 106 mmol/L (98-107); Non-African American GFR(CKD) >90 (>60 ml/min/1.73 sqM); Potassium 4.5 mmol/L (3.5-5.1); Total Bilirubin 0.5 mg/dL (0.2-1.3); Total Protein 7.5 g/dL (6.3-8.2)
--- NOTE | 2024-03-13 20:59 | US ---
EXAMINATION TYPE: Transabdominal DATE OF EXAM: 03/13/2024 8:46 PM COMPARISON: 03/11/2024 CLINICAL INDICATION: Female, 33 years old with history of pain; Patient states no pain. States positi ve preg test and discharge. Technique: Transvaginal (TV) and Transabdominal (TA), Grayscale and color Doppler imaging of the pelv is. EXAM MEASUREMENTS: GESTATIONAL AGE / DATING Physician Established: Not yet established Dates by LMP: (8 weeks/2 days) EDC: 10/21/2024 Dates by First Scan: cannot date by previous exams Dates by Current Scan for: No IUP seen at this time MATERNAL ANATOMY Uterus: 7.5 x 4.1 x 4.4cm. No IUP seen. Endometrium measures 0.5cm Right Ovary: 2.6 x 1.8 x 1.8cm. Follicular changes seen. WNL Left Ovary: 3.4 x 1.6 x 2.1cm. Follicular changes noted. 1.2 x 1.2 x 1.2cm hypoechoic area seen, prob able corpus luteal cyst vs other Post CDS / Adnexa: wnl as best seen Presence of free fluid: no Presence of corpus luteal cyst: 1.2 x 1.2 x 1.2cm hypoechoic area seen within left ovary Presence of subchorionic bleed: no Date of LMP: 01/15/2024 Beta HcG (if available): 3284 IMPRESSION: No evidence of intrauterine gestational sac in this patient with a positive B-hCG. This can be seen i n early , ectopic and spontaneous . Follow up pelvic ultrasound in 5-7 day s and serial beta hCG studies are recommended. [facility], Workstation: [id number], 03/13/2024 8:57 PM
--- NOTE | 2024-03-13 22:34 | ED ---
Female Urogenital HPI - General Chief complaint: Urogenital Stated complaint: preg,vag discharge Time Seen by Provider: 03/13/24 19:18 Source: patient Mode of arrival: ambulatory Limitations: language barrier - History of Present Illness Initial comments: 33-year-old female presenting for repeat ultrasound and hCG. Patient is currently about 8 weeks with her LMP of 8/3. She was here 2 days ago and ultrasound could not identify an IUP. She has come back as instructed for repeat testing. She is having no pain or bleeding today. She was previously having some discharge ranging in color from pink to brown. No pain today. No fevers. No dysuria or hematuria. No flank pain. G2, P1. Recently moved here from [facility], requires the use of a tattoo designer - Related Data Previous Rx's Medication Instructions Recorded Ggs-Itvj-Laqby Acid 1 each PO DAILY 30 Days #30 cap 03/08/24 [-U Capsule] Vit No.179/Iron/Folic 1 each PO DAILY #30 tab 03/13/24 [ Tablet] Allergies Allergy/AdvReac Type Severity Reaction Status Date / Time No Known Allergies Allergy Verified 03/11/24 09:23 Review of Systems ROS Statement: Those systems with pertinent positive or pertinent negative responses have been documented in the HPI. ROS Other: All systems not noted in ROS Statement are negative. Past Medical History Past Medical History: No Reported History History of Any Multi-Drug Resistant Organisms: None Reported Past Surgical History: No Surgical Hx Reported Past Psychological History: No Psychological Hx Reported Smoking Status: Former smoker Past Alcohol Use History: Occasional Past Drug Use History: None Reported General Exam Limitations: language barrier (Tajik, requires tattoo designer) General appearance: alert, in no apparent distress Head exam: Present: atraumatic, normocephalic, normal inspection Eye exam: Present: normal appearance, EOMI Neck exam: Present: normal inspection. Absent: meningismus Respiratory exam: Absent: respiratory distress Cardiovascular Exam: Present: regular rate GI/Abdominal exam: Present: soft. Absent: distended, tenderness, guarding, rebound, rigid Neurological exam: Present: alert, oriented X3 Psychiatric exam: Present: normal affect, normal mood Skin exam: Present: warm, dry Course Vital Signs 03/13/24 03/13/24 19:11 22:43 Temperature 97.9 F Pulse Rate 88 85 Respiratory 16 16 Rate Blood Pressure 115/76 108/73 O2 Sat by Pulse 100 97 Oximetry Medical Decision Making - Medical Decision Making Was pt. sent in by a medical professional or institution (GUCCI Peña, PICKER/PULLER, urgent care, hospital, or custodial...) When possible be specific @ -No Did you speak to anyone other than the patient for history (EMS, parent, family, police, friend...)? What history was obtained from this source @ -No Did you review nursing and triage notes (agree or disagree)? Why? @ -I reviewed and agree with nursing and triage notes Were old charts reviewed (outside hosp., previous admission, EMS record, old EKG, old radiological studies, urgent care reports/EKG's, custodial records)? Report findings @ -Reviewed the patient's recent visits Differential Diagnosis (chest pain, altered mental status, abdominal pain women, abdominal pain men, vaginal bleeding, weakness, fever, dyspnea, syncope, he adache, dizziness, GI bleed, back pain, seizure, CVA, palpatations, mental health, musculoskeletal)? @ -MDM Differential Vaginal Bleeding: Spontaneous , threatened , molar , ectopic , bloody show, incompetent cervix, abruptioplacenta, placenta previa, uterine rupt ure, dysfunctional uterine bleeding, hemorrhage, uterine fibroids. ... This is not meant to be an all-inclusive list EKG interpreted by me (3pts min.). @ -As above X-rays interpreted by me (1pt min.). @ -None done CT interpreted by me (1pt min.). @ -None done U/S interpreted by me (1pt. min.). @ -Ultrasound shows no evidence of intrauterine gestational sac in this patient with a positive beta hCG. This can be seen in early ectopic or spontaneous . Follow-up pelvic ultrasound in 5 to 7 days and serial beta hCG studies are recommended What testing was considered but not performed or refused? (CT, X-rays, U/S, labs)? Why? @ -None What meds were considered but not given or refused? Why? @ -None Did you discuss the management of the patient with other professionals (professionals i.e. GUCCI Peña, PICKER/PULLER, lab, RT, psych nurse, social services aide, crematorium operator, teacher, property and supply officer, case specialist)? Give summary @ -No Was smoking cessation discussed for >3mins.? @ -No Was critical care preformed (if so, how long)? @ -No Were there social determinants of health that impacted care today? How? (Homelessness, low income, unemployed, alcoholism, drug addiction, transportation, low edu. Level, literacy, decrease access to med. care, senior living, rehab)? @ -Patient speaks Tajik, tattoo designer required Was there de-escalation of care discussed even if they declined (Discuss DNR or withdrawal of care, Hospice)? DNR status @ -No What co-morbidities impacted this encounter? (DM, HTN, Smoking, COPD, CAD, Cancer, CVA, ARF, Chemo, Hep., AIDS, mental health diagnosis, sleep apnea, morbid obesity)? @ -None Was patient admitted / discharged? Hospital course, mention meds given and route, prescriptions, significant lab abnormalities, going to OR and other pertinent info. @ -33-year-old female presenting for repeat beta-hCG and ultrasound after not having an identifiable IUP on ultrasound 48 hours ago. Patient is having no pain or vaginal bleeding at this time. Ultrasound today still does not identify definitive IUP which could mean multiple things including miscarriage, early , or ectopic . hCG 3284.3, while this has increased to has not doubled from most recent value of 2613.9. Patient is provided with a prescription for repeat beta-hCG and ultrasound as well as referral to [facility] BI TRI OPERATOR. She is educated on today's findings and the required further testing. All questions were answered. Discharged. Follow-up with PCP. Report back to ER with any new or worsening symptoms. Discussed return parameters and answered all questions. Patient conveyed verbal understanding and agreed to the plan. I discussed this case in detail with my attending Dr. Alvarado Undiagnosed new problem with uncertain prognosis? @ -No Drug Therapy requiring intensive monitoring for toxicity (Heparin, Nitro, Insulin, Cardizem)? @ -No Were any procedures done? @ -No Diagnosis/symptom? @ -Threatened miscarriage Acute, or Chronic, or Acute on Chronic? @ -Acute Uncomplicated (without systemic symptoms) or Complicated (systemic symptoms)? @ -Uncomplicated Side effects of treatment? @ -No Exacerbation, Progression, or Severe Exacerbation? @ -No - Lab Data Result diagrams: 03/13/24 19:50 03/13/24 19:50 Lab Results 03/13/24 03/13/24 03/13/24 Range/Units 19:50 19:50 19:50 WBC 6.5 (3.8-10.6) k/uL RBC 4.41 (3.80-5.40) m/uL Hgb 13.7 (11.4-16.0) gm/dL Hct 41.6 (34.0-46.0) % MCV 94.4 (80.0-100.0) fL MCH 31.0 (25.0-35.0) pg MCHC 32.9 (31.0-37.0) g/dL RDW 11.9 (11.5-15.5) % Plt Count 340 (150-450) k/uL MPV 7.6 Neutrophils % 60 % Lymphocytes % 28 % Monocytes % 5 % Eosinophils % 2 % Basophils % 1 % Neutrophils # 3.9 (1.3-7.7) k/uL Lymphocytes # 1.8 (1.0-4.8) k/uL Monocytes # 0.4 (0-1.0) k/uL Eosinophils # 0.2 (0-0.7) k/uL Basophils # 0.0 (0-0.2) k/uL Sodium 140 (137-145) mmol/L Potassium 4.5 (3.5-5.1) mmol/L Chloride 106 (98-107) mmol/L Carbon Dioxide 27 (22-30) mmol/L Anion Gap 7 mmol/L BUN 8 (7-17) mg/dL Creatinine 0.57 (0.52-1.04) mg/dL Est GFR (CKD-EPI)AfAm >90 (>60 ml/min/1.73 sqM) Est GFR (CKD-EPI)NonAf >90 (>60 ml/min/1.73 sqM) Glucose 98 (74-99) mg/dL Calcium 10.2 (8.4-10.2) mg/dL Total Bilirubin 0.5 (0.2-1.3) mg/dL AST 30 (14-36) U/L ALT 33 (4-34) U/L Alkaline Phosphatase 50 (38-126) U/L Total Protein 7.5 (6.3-8.2) g/dL Albumin 4.8 (3.5-5.0) g/dL HCG, Quant 3284.3 mIU/mL Urine Color Colorless Urine Appearance Clear (Clear) Urine pH 6.5 (5.0-8.0) Ur Specific [place] 1.002 (1.001-1.035) Urine Protein Negative (Negative) Urine Glucose (UA) Negative (Negative) Urine Ketones Negative (Negative) Urine Blood Negative (Negative) Urine Nitrite Negative (Negative) Urine Bilirubin Negative (Negative) Urine Urobilinogen <2.0 (<2.0) mg/dL Ur Leukocyte Esterase Negative (Negative) Disposition Clinical Impression: Threatened miscarriage Disposition: HOME SELF-CARE Condition: Good Instructions (If sedation given, give patient instructions): Threatened Miscarriage (ED) Additional Instructions: Follow up with BI TRI OPERATOR. Report back to ER new or worsening symptoms. Obtain repeat beta-hCG in 48 hours. Today your hCG was 3284.3 Prescriptions: Vit No.179/Iron/Folic [ Tablet] 1 each PO DAILY #30 tab Is patient prescribed a controlled substance at d/c from ED?: No Referrals: None,Stated [Primary Care Provider] - 1-2 days Madeleine Cuba DO [Doctor of Osteopathic Medicine] - 1-2 days Time of Disposition: 22:30
[2024-03-13 22:44] VITALS: BP 108/73; PULSE 85
== END 2024-03-13 22:44 | disposition home or self-care (01) ==
LOC: EC 18:32
DX: O20.0 Threatened abortion (principal); Z87.891 Personal history of nicotine dependence
CPT/HCPCS: 36415; 76801; 76817; 80053; 81003; 84702; 85025; 96360; 99284

== ENCOUNTER 2024-03-15 09:50 | Emergency (ER) | payer OTHER ==
[2024-03-15 09:55] VITALS: RESP 18
--- NOTE | 2024-03-15 11:57 | ED ---
General Adult HPI - General Chief complaint: Recheck/Abnormal Lab/Rx Stated complaint: abn labs/repeat ultrasound Time Seen by Provider: 03/15/24 09:57 Source: patient, RN notes reviewed Mode of arrival: ambulatory Limitations: language barrier - History of Present Illness Initial comments: 33-year-old female presents emergency department chief complaint of positive and repeat laboratory studies. Patient has been here several times for similar complaints she was instructed to come back as she has had abnormal ultrasound and positive . Patient states she has no significant abdominal pain. Patient states that she did have some chronic discharge today with no active bleeding now. Patient states that she is attempted to follow-up with [facility] but due to insurance reasons she has not been able to follow-up. - Related Data Previous Rx's Medication Instructions Recorded Vbl-Ozwp-Buxza Acid 1 each PO DAILY 30 Days #30 cap 03/08/24 [-U Capsule] Vit No.179/Iron/Folic 1 each PO DAILY #30 tab 03/13/24 [ Tablet] Allergies Allergy/AdvReac Type Severity Reaction Status Date / Time No Known Allergies Allergy Verified 03/15/24 09:55 Review of Systems ROS Statement: Those systems with pertinent positive or pertinent negative responses have been documented in the HPI. ROS Other: All systems not noted in ROS Statement are negative. Past Medical History Past Medical History: No Reported History History of Any Multi-Drug Resistant Organisms: None Reported Past Surgical History: No Surgical Hx Reported Past Psychological History: No Psychological Hx Reported Smoking Status: Former smoker Past Alcohol Use History: Occasional Past Drug Use History: None Reported General Exam Limitations: language barrier General appearance: alert, in no apparent distress ENT exam: Present: normal exam, mucous membranes moist Neck exam: Present: normal inspection, full ROM. Absent: tenderness, meningismus, lymphadenopathy Respiratory exam: Present: normal lung sounds bilaterally. Absent: respiratory distress, wheezes, rales, rhonchi, stridor Cardiovascular Exam: Present: regular rate, normal rhythm, normal heart sounds. Absent: systolic murmur, diastolic murmur, rubs, gallop, clicks GI/Abdominal exam: Present: soft, normal bowel sounds. Absent: distended, tenderness, guarding, rebound, rigid Course Vital Signs 03/15/24 03/15/24 09:52 12:06 Temperature 98.4 F 98.2 F Pulse Rate 90 82 Respiratory 18 18 Rate Blood Pressure 121/78 120/77 O2 Sat by Pulse 97 98 Oximetry Medical Decision Making - Medical Decision Making Was pt. sent in by a medical professional or institution (, PA, PLAN REP, urgent care, hospital, or [facility]...) When possible be specific @ -No Did you speak to anyone other than the patient for history (EMS, parent, family, police, friend...)? What history was obtained from this source @ -No Did you review nursing and triage notes (agree or disagree)? Why? @ -I reviewed and agree with nursing and triage notes Were old charts reviewed (outside hosp., previous admission, EMS record, old EKG, old radiological studies, urgent care reports/EKG's, [facility] records)? Report findings @ -[Reviewed prior ECG and ultrasounds Differential Diagnosis (chest pain, altered mental status, abdominal pain women, abdominal pain men, vaginal bleeding, weakness, fever, dyspnea, syncope, headache, dizziness, GI bleed, back pain, seizure, CVA, palpatations, mental health, musculoskeletal)? @ -Differential Vaginal Bleeding: Spontaneous , threatened , molar , ectopic , bloody show, incompetent cervix, abruptioplacenta, placenta previa, uterine rupture, dysfunctional uterine bleeding, hemorrhage, uterine fibroids, this is not meant to be an all-inclusive list. EKG interpreted by me (3pts min.). @ -None X-rays interpreted by me (1pt min.). @ -None done CT interpreted by me (1pt min.). @ -None done U/S interpreted by me (1pt. min.). @ -None done What testing was considered but not performed or refused? (CT, X-rays, U/S, labs)? Why? @ -None What meds were considered but not given or refused? Why? @ -None Did you discuss the management of the patient with other professionals (professionals i.e. , PA, PLAN REP, lab, RT, psych nurse, social welfare administrator, alignment technician, teacher, chief nursing officer, disability case manager)? Give summary @ -Discussed the case with Dr. Echavarria on-call [facility] who recommends patient follow-up in office will contact the patient for follow-up Was smoking cessation discussed for >3mins.? @ -No Was critical care preformed (if so, how long)? @ -No Were there social determinants of health that impacted care today? How? (Homelessness, low income, unemployed, alcoholism, drug addiction, transportation, low edu. Level, literacy, decrease access to med. care, [facility], rehab)? @ -No Was there de-escalation of care discussed even if they declined (Discuss DNR or withdrawal of care, Hospice)? DNR status @ -No What co-morbidities impacted this encounter? (DM, HTN, Smoking, COPD, CAD, Cancer, CVA, ARF, Chemo, Hep., AIDS, mental health diagnosis, sleep apnea, morbid obesity)? @ -None Was patient admitted / discharged? Hospital course, mention meds given and route, prescriptions, significant lab abnormalities, going to OR and other pertinent info. @ -Disc edge patient will be contacted by [facility] for follow-up regarding increasing hCG without intrauterine Undiagnosed new problem with uncertain prognosis? @ -No Drug Therapy requiring intensive monitoring for toxicity (Heparin, Nitro, Insulin, Cardizem)? @ -No Were any procedures done? @ -No Diagnosis/symptom? @ - Acute, or Chronic, or Acute on Chronic? @ -Acute Uncomplicated (without systemic symptoms) or Complicated (systemic symptoms)? @ -Complicated Side effects of treatment? @ -No Exacerbation, Progression, or Severe Exacerbation? @ -No Poses a threat to life or bodily function? How? (Chest pain, [place], [place], pneumonia, PE, COPD, DKA, ARF, appy, cholecystitis, CVA, Diverticulitis, Homicidal, Suicidal, threat to staff... and all critical care pts) @ -No - Lab Data Lab Results 03/15/24 Range/Units 10:08 HCG, Quant 4170.3 mIU/mL Disposition Clinical Impression: Disposition: HOME SELF-CARE Condition: Stable Additional Instructions: You will receive a call from [facility] regarding follow-up. Please return to the Emergency Department if symptoms worsen or any other concerns. Is patient prescribed a controlled substance at d/c from ED?: No Referrals: Nonstaff,Physician [Primary Care Provider] - 1-2 days Marisol Bahena MD [STAFF PHYSICIAN] - 1-2 days Time of Disposition: 11:57
[2024-03-15 12:07] VITALS: BP 120/77; PULSE 82; TEMP 98.2
== END 2024-03-15 12:09 | disposition home or self-care (01) ==
LOC: EC 09:50
CPT/HCPCS: 36415; 84702; 99283

== ENCOUNTER → 2024-03-24 | Outpatient (CLI) | payer OTHER ==
[2024-03-24 18:22] LABS: HCT 40.8 % (37.2-46.3); HGB 13.3 g/dL (12.0-15.0); MCH 30.4 pg (27.0-32.0); MCHC 32.6 g/dL (32.0-37.0); MCV 93.2 FL (80.0-97.0); Mean Platelet Volume 11.1 FL (9.5-12.2); NRBC Per 100 WBC 0 X 10*3/uL (0.00-0.01); Platelet Count 354 X 10*3/uL (140-440); RBC 4.38 X 10*6/uL (4.10-5.20); RDW 12.5 % (11.5-14.5); WBC 5.45 X 10*3/uL (4.50-10.00)
[2024-03-24 18:37] LABS: ALT 30 U/L (8-44); AST 24 U/L (13-35); Blood Urea Nitrogen 4.7 mg/dL (9.0-27.0)
== END | disposition home or self-care (01) ==
LOC: LABWHC1 12:10
PROVIDERS: ATTEND Obstetrics & Gynecology
DX: O00.109 Unspecified tubal pregnancy without intrauterine pregnancy (principal)
CPT/HCPCS: 36415; 82565; 84450; 84460; 84520; 84702; 85027; 86850; 86900; 86901

== ENCOUNTER → 2024-03-24 | Outpatient (CLI) | payer OTHER ==
[2024-03-24 13:53] VITALS: BP 103/64; PULSE 72; RESP 16; TEMP 97.8
[2024-03-24] MEDS: METHOTREXATE SODIUM 25 MG/ML IM ONE (14:00)
== END ==
LOC: PROCWHC3 13:15
PROVIDERS: ATTEND Obstetrics & Gynecology
DX: O00.90 Unspecified ectopic pregnancy without intrauterine pregnancy (principal)
CPT/HCPCS: 96402

== ENCOUNTER → 2024-03-27 | Outpatient (CLI) | payer OTHER | END | disposition home or self-care (01) | LOC: LABWHC1 10:24 | PROVIDERS: ATTEND Obstetrics & Gynecology | DX: O03.9 Complete or unspecified spontaneous abortion without complication (principal) | CPT/HCPCS: 36415; 84702 ==

== ENCOUNTER → 2024-03-30 | Outpatient (CLI) | payer OTHER ==
[2024-03-30 09:45] LABS: HCT 39.6 % (34.0-46.0); HGB 13.3 gm/dL (11.4-16.0); MCH 31.3 pg (25.0-35.0); MCHC 33.5 g/dL (31.0-37.0); MCV 93.2 fL (80.0-100.0); Mean Platelet Volume 7.6; Platelet Count 297 k/uL (150-450); RBC 4.25 m/uL (3.80-5.40); RDW 12.4 % (11.5-15.5); WBC 3.9 k/uL (3.8-10.6)
[2024-03-30 10:00] LABS: ALT 31 U/L (4-34); AST 27 U/L (14-36); African American GFR (CKD) >90 (>60 ml/min/1.73 sqM); Blood Urea Nitrogen 9 mg/dL (7-17); Non-African American GFR(CKD) >90 (>60 ml/min/1.73 sqM)
[2024-03-30 10:16] LABS: HCG,Quantitative Serum 2898.1 mIU/mL
== END | disposition home or self-care (01) ==
LOC: LABWHC1 09:18
PROVIDERS: ATTEND Obstetrics & Gynecology
DX: O03.9 Complete or unspecified spontaneous abortion without complication (principal)
CPT/HCPCS: 36415; 82565; 84450; 84460; 84520; 84702; 85027